=== PATIENT | female | born 1990 | race Caucasian/White ===

== ENCOUNTER 2022-06-13 00:06 | Emergency (ER) | payer BC ==
[2022-06-13 00:59] LABS: ALT (SGPT) 16 U/L (8-55); AST (SGOT) 15 U/L (5-34); Albumin 3.9 g/dL (3.5-5.0); Alkaline Phosphatase 54 U/L (40-110); Anion Gap 14 mmol/L (10-20); BUN (Urea Nitrogen) 6 mg/dL (7.0-18.7); Bilirubin, Total 0.4 mg/dL (0.2-1.2); Calc. Creatinine Clearance 0 mL/min (70-130); Calcium 8.7 mg/dL (7.8-10.44); Carbon Dioxide 19 mmol/L (22-29); Chloride 105 mmol/L (98-107); Estimated GFR 122; Globulin 2.7 g/dL (2.4-3.5); Glucose 103 mg/dL (70-105); Potassium 3.6 mmol/L (3.5-5.1); Protein, Total 6.6 g/dL (6.0-8.3); Sodium 134 mmol/L (136-145)
[2022-06-13 01:19] LABS: #Monocytes 0.5 10x3/uL (0.0-1.1); #Neutrophils 8.3 10x3/uL (1.5-8.4); %Basophils 0.2 % (0.0-2.0); %Lymphocytes 12.8 % (18.0-47.0); %Monocytes 4.5 % (0.0-10.0); Hemoglobin 12.1 g/dL (12.0-15.5); Mean Corpuscular HGB CONC 35.3 g/dL (32.0-36.0); Mean Corpuscular Volume 87.9 fl (81.6-98.3); Mean Platelet Volume 9.5 fl (7.4-10.4); Platelet Count 251 10x3/uL (150-450); RBC Distribution Width 11.9 % (11.5-14.5); White Blood Cell (WBC) Count 10.1 10x3/uL (3.5-10.5)
[2022-06-13 01:22] LABS: SARS-CoV-2 NAA Rapid Test Not Detected (NotDetected)
[2022-06-13] MEDS ORDERED: Acetaminophen 500 MG TAB ONE (01:32)
[2022-06-13 01:41] LABS: Bilirubin Negative (Negative); Blood, Urine Negative (Negative); Clarity Cloudy (Clear); Glucose, Urine (Dipstick) Negative (Negative); Ketone, Urine 40 mg/dL (Negative); Leukocyte Small (Negative); Nitrite Negative (Negative); Protein, Urine (Dipstick) 30 mg/dL (Neg-Trace); Urobilinogen 0.2 mg/dL (Less than 2)
[2022-06-13 01:50] LABS: RBC/HPF None Seen HPF (0-3)
[2022-06-13 01:51] LABS: Bacteria/HPF 2+ HPF (None Seen); Mucous/LPF 4+ LPF (<2+)
[2022-06-13] MEDS ORDERED: Nitrofurantoin Monohyd/M-Cryst 100 MG CAP PO SCH (05:15)
[2022-06-13] MEDS ORDERED: Iopamidol 370 76% 100 ML VIAL ONE (14:07)
== END 2022-06-13 05:25 | disposition home or self-care (01) ==
LOC: CSHERS 00:06
DX: O23.42 Unspecified infection of urinary tract in pregnancy, second trimester (principal); N39.0 Urinary tract infection, site not specified; Z20.822 Contact with and (suspected) exposure to COVID-19; Z3A.20 20 weeks gestation of pregnancy
CPT/HCPCS: 71275; 80053; 81003; 81015; 84484; 85025; 85379; 87086; 93005; 96360; Q9967

== ENCOUNTER → 2022-10-15 | Day surgery (SDC) | payer BC ==
[~2022-10-15] MED LIST: hydrALAZINE 20 MG/ML VIAL SLOW IVP PRN
[2022-10-15 22:13] VITALS: BMI 30.4
== END ==
LOC: CSHLD/OP 21:39
PROVIDERS: ATTEND Student in an Organized Health Care Education/Training Program
DX: O47.1 False labor at or after 37 completed weeks of gestation (principal); Z3A.37 37 weeks gestation of pregnancy

== ENCOUNTER 2022-10-16 15:08 | Day surgery (SDC) | payer BC ==
[2022-10-16 15:50] VITALS: BMI 30.4
[2022-10-16] MEDS ORDERED: hydrALAZINE 20 MG/ML VIAL SLOW IVP PRN (16:06)
== END 2022-10-16 18:20 | disposition home or self-care (01) ==
LOC: CSHLD/OP 15:08
PROVIDERS: ATTEND Student in an Organized Health Care Education/Training Program
DX: O47.1 False labor at or after 37 completed weeks of gestation (principal); Z88.8 Allergy status to other drugs, medicaments and biological substances; Z3A.37 37 weeks gestation of pregnancy
CPT/HCPCS: 99283

== ENCOUNTER 2022-10-17 14:09 | Observation (INO) | payer BC ==
[2022-10-17] MEDS ORDERED: Carboprost 250 MCG/ML AMP IM PRN (14:47)
[2022-10-17] MEDS ORDERED: Methylergonovine 0.2 MG/ML VIAL IM PRN (14:47)
[2022-10-17] MEDS ORDERED: Diphenoxylate HCl/Atropine Tablet PO PRN (14:47)
[2022-10-17] MEDS ORDERED: HYDROcodone/Acetaminophen 5/325 mg Tablet PO PRN (14:47)
[2022-10-17] MEDS ORDERED: Ibuprofen 800 MG TAB PO PRN (14:47)
[2022-10-17] MEDS ORDERED: hydrALAZINE 20 MG/ML VIAL SLOW IVP PRN (14:47)
[2022-10-17] MEDS ORDERED: Lidocaine 1% (PF) 30 ML VIAL SC PRN (14:47)
[2022-10-17] MEDS ORDERED: Ondansetron PF 4 MG/2 ML Vial IVP PRN (14:47)
[2022-10-17] MEDS ORDERED: Acetaminophen 500 MG TAB PO PRN (14:47)
[2022-10-17] MEDS ORDERED: Promethazine HCl 25 MG/ML VIAL IM PRN (14:47)
[2022-10-17] MEDS ORDERED: Butorphanol Tartrate 1 MG/ML VIAL SLOW IVP PRN (14:47)
[2022-10-17] MEDS ORDERED: Misoprostol 200 MCG TAB PR PRN (14:47)
[2022-10-17] MEDS ORDERED: NS w/ Oxytocin 30 units 500 ML IV SCH (15:00)
[2022-10-17] MEDS ORDERED: Penicillin G Potassium 5 MILL.UNITS in Sodium Chloride 0.9% 100 ML IVPB SCH (15:00)
[2022-10-17] MEDS ORDERED: Penicillin G 2.5 MILL.units 2.5 MILL.UNITS in Premix Bag 1 BAG IVPB SCH (15:00)
[2022-10-17 15:17] VITALS: BMI 31.1
[2022-10-17 15:39] LABS: Hemoglobin 12.9 g/dL (12.0-15.5); Mean Corpuscular Hemoglobin 30.7 pg (27.0-33.0); Mean Corpuscular Volume 87.9 fl (81.6-98.3); Mean Platelet Volume 10.4 fl (7.4-10.4); Platelet Count 219 10x3/uL (150-450); RBC Distribution Width 12.5 % (11.5-14.5); White Blood Cell (WBC) Count 10.9 10x3/uL (3.5-10.5)
[2022-10-17 16:05] LABS: Syphilis Antibody Nonreactive (Nonreactive); Syphilis Antibody Index 0.05 S/CO (<1.00 Non-Reactive)
[2022-10-17 16:06] LABS: HBSAg Index 0.21 S/CO (0-0.99); Hep B Surf Ag Non-Reactive S/CO (NonReactive)
[2022-10-17 16:34] LABS: SARS-CoV-2 NAA Rapid Test Not Detected (NotDetected)
== END 2022-10-18 08:40 | disposition home or self-care (01) ==
LOC: CSHLD/OP 14:09 → CSHLD 16:38 → INTOOBSV 16:38
PROVIDERS: ADMIT Student in an Organized Health Care Education/Training Program; ATTEND Student in an Organized Health Care Education/Training Program
DX: O47.1 False labor at or after 37 completed weeks of gestation (principal); Z3A.38 38 weeks gestation of pregnancy; Z88.8 Allergy status to other drugs, medicaments and biological substances
CPT/HCPCS: 36415; 85027; 86780; 86850; 86900; 86901; 87340; 99283; J2540; J3490; U0002

== ENCOUNTER 2022-10-24 05:30 | Inpatient (IN) | payer BC ==
[2022-10-24] MEDS: Lactated Ringer's 1,000 ML IV SCH ×3 (06:50→13:53)
[2022-10-24] MEDS ORDERED: NS w/ Oxytocin 30 units 500 ML ONE (06:55)
[2022-10-24] MEDS ORDERED: Sodium Chloride 0.9% 100 ML ONE (06:55)
[2022-10-24] MEDS ORDERED: Penicillin G Potassium 5 MILL.UNITS VIAL ONE (06:55)
[2022-10-24] MEDS ORDERED: Lidocaine 1% (PF) 30 ML VIAL SC PRN (06:57)
[2022-10-24] MEDS ORDERED: Promethazine HCl 25 MG/ML VIAL IM PRN ×2 (06:57→10:36)
[2022-10-24] MEDS ORDERED: Misoprostol 200 MCG TAB PR PRN (06:57)
[2022-10-24] MEDS ORDERED: Acetaminophen 500 MG TAB PO PRN (06:57)
[2022-10-24] MEDS ORDERED: NS w/ Oxytocin 30 units 500 ML IV SCH ×2 (06:57)
[2022-10-24] MEDS ORDERED: Ibuprofen 800 MG TAB PO PRN (06:57)
[2022-10-24] MEDS ORDERED: Butorphanol Tartrate 1 MG/ML VIAL SLOW IVP PRN (06:57)
[2022-10-24] MEDS ORDERED: hydrALAZINE 20 MG/ML VIAL SLOW IVP PRN (06:57)
[2022-10-24] MEDS ORDERED: Ondansetron PF 4 MG/2 ML Vial IVP PRN ×2 (06:57→10:36)
[2022-10-24] MEDS ORDERED: Diphenoxylate HCl/Atropine Tablet PO PRN (06:57)
[2022-10-24] MEDS ORDERED: Methylergonovine 0.2 MG/ML VIAL IM PRN (06:57)
[2022-10-24] MEDS ORDERED: Carboprost 250 MCG/ML AMP IM PRN (06:57)
[2022-10-24] MEDS ORDERED: HYDROcodone/Acetaminophen 5/325 mg Tablet PO PRN (06:57)
[2022-10-24] MEDS ORDERED: Penicillin G Potassium 5 MILL.UNITS in Sodium Chloride 0.9% 100 ML IVPB SCH (07:15)
[2022-10-24 07:48] LABS: Hemoglobin 12.2 g/dL (12.0-15.5); Mean Corpuscular HGB CONC 35.4 g/dL (32.0-36.0); Mean Corpuscular Volume 87.6 fl (81.6-98.3); Mean Platelet Volume 10.4 fl (7.4-10.4); Platelet Count 206 10x3/uL (150-450); RBC Distribution Width 12.5 % (11.5-14.5); Red Blood Cell (RBC) Count 3.94 10x6/uL (3.90-5.03); White Blood Cell (WBC) Count 8.3 10x3/uL (3.5-10.5)
[2022-10-24] MEDS ORDERED: Bupivacaine PF 0.5% 30 ML VIAL ONE (08:00)
[2022-10-24] MEDS ORDERED: ePHEDrine Sulfate 50 MG/10 ML VIAL ONE (08:00)
[2022-10-24] MEDS ORDERED: Bupivacaine 0.25% HCL 30 ML VIAL ONE (08:00)
[2022-10-24 08:21] LABS: SARS-CoV-2 NAA Rapid Test Not Detected (NotDetected)
[2022-10-24] MEDS ORDERED: Fentanyl 2 mcg/Bup 0.1% Cadd 100 ML ONE (08:23)
[2022-10-24 08:34] LABS: HBSAg Index 0.19 S/CO (0-0.99); Hep B Surf Ag Non-Reactive S/CO (NonReactive)
[2022-10-24 08:36] LABS: Syphilis Antibody Nonreactive (Nonreactive); Syphilis Antibody Index 0.03 S/CO (<1.00 Non-Reactive)
[2022-10-24 08:42] VITALS: BMI 31.1
[2022-10-24] MEDS ORDERED: diphenhydrAMINE 50 MG/ML VIAL IVP PRN (10:36)
[2022-10-24] MEDS ORDERED: Moisturizing Cream (Eucerin) 113 GM JAR TOP PRN (10:36)
[2022-10-24] MEDS ORDERED: Naloxone HCl 0.4 mg/ml Vial IVP PRN ×2 (10:36)
[2022-10-24] MEDS ORDERED: Acetaminophen 325 MG TAB PO PRN (10:36)
[2022-10-24] MEDS ORDERED: Lactated Ringer's 500 ML IV PRN (10:36)
[2022-10-24] MEDS ORDERED: ePHEDrine Sulfate 50 MG/10 ML VIAL SLOW IVP PRN (10:36)
[2022-10-24] MEDS ORDERED: Communication Order-Pharmacy FS SCH (10:45)
[2022-10-24] MEDS ORDERED: Fentanyl 2 mcg/Bupivacaine 0.1% Cassette 100 ML EPIDURAL SCH (10:45)
[2022-10-24] MEDS: Penicillin G 2.5 MILL.units 2.5 MILL.UNITS in Premix Bag 1 BAG IVPB SCH ×3 (10:50→19:05)
[2022-10-24] MEDS ORDERED: PHENYLEPHRINE-NS 100 MCG/ML 10 ML SYRINGE ONE (20:37)
[2022-10-24] MEDS ORDERED: Famotidine/PF 20 mg/2ml Vial SLOW IVP PRN (23:24)
[2022-10-24] MEDS ORDERED: Bicitra 30 ML UDCUP PO PRN (23:24)
[2022-10-24] MEDS ORDERED: Clindamycin/D5W 900 mg/50 ml Premix Bag ONE (23:25)
[2022-10-24] MEDS ORDERED: Azithromycin 500 MG VIAL ONE (23:26)
[2022-10-24] MEDS ORDERED: Azithromycin 500 MG in Sodium Chloride 0.9% 250 ML 250 ML IVPB SCH (23:30)
[2022-10-24] MEDS ORDERED: Clindamycin/D5W 900 MG in Premix Bag 1 BAG IVPB SCH (23:30)
[2022-10-24] MEDS ORDERED: Oxytocin 10 UNITS/ML VIAL ONE (23:34)
[2022-10-24] MEDS ORDERED: PROPOFOL 20 ML ONE (23:51)
[2022-10-24] MEDS ORDERED: Methylergonovine 0.2 MG/ML VIAL ONE (23:51)
[2022-10-24] MEDS ORDERED: Succinylcholine 200 MG/10 ml SYRINGE FS ONE (23:52)
[2022-10-24] MEDS ORDERED: ADMIXTURE FEE IVPB SCH (23:59)
[2022-10-24] MEDS ORDERED: GENTAMICIN IVPB SCH (23:59)
[2022-10-24] MEDS ORDERED: SODIUM CHLORIDE IVPB SCH (23:59)
[2022-10-25] MEDS ORDERED: Fentanyl 100 MCG/2 ML VIAL ONE (00:10)
[2022-10-25] MEDS ORDERED: Ketorolac Tromethamine 30 MG/ML VIAL ONE (00:13)
[2022-10-25 00:22] LABS: pH (Cord, venous) 7.104 (7.250-7.350)
[2022-10-25] MEDS ORDERED: Metoclopramide HCl 10 MG/2 ML VIAL ONE (00:22)
[2022-10-25] MEDS ORDERED: Lidocaine 2% MPF 10 ML AMP (For Epidural Use) ONE (00:26)
[2022-10-25] MEDS ORDERED: Ondansetron HCl/PF 4 MG/2 ML Vial IVP PRN (00:55)
[2022-10-25] MEDS ORDERED: Fentanyl 100 MCG/2 ML VIAL SLOW IVP PRN (00:55)
[2022-10-25] MEDS ORDERED: diphenhydrAMINE 50 MG/ML VIAL IVP PRN (00:55)
[2022-10-25] MEDS ORDERED: Naloxone HCl 0.4 mg/ml Vial IV PRN (00:55)
[2022-10-25] MEDS ORDERED: Ondansetron PF 4 MG/2 ML Vial IVP PRN ×2 (00:55→04:01)
[2022-10-25] MEDS ORDERED: Meperidine HCl/PF 25 MG/ML VIAL SLOW IVP PRN (00:55)
[2022-10-25] MEDS ORDERED: Moisturizing Cream (Eucerin) 113 GM JAR TOP PRN (00:55)
[2022-10-25] MEDS ORDERED: Promethazine HCl 25 MG/ML VIAL IM PRN ×2 (00:55→04:01)
[2022-10-25] MEDS ORDERED: Naloxone HCl 0.4 mg/ml Vial IVP PRN ×2 (00:55)
[2022-10-25] MEDS ORDERED: Promethazine HCl 25 MG SUPP PR PRN (00:55)
[2022-10-25] MEDS ORDERED: Ketorolac Tromethamine 30 MG/ML VIAL IVP SCH (01:00)
[2022-10-25] MEDS ORDERED: Communication Order-Pharmacy FS SCH (01:00)
[2022-10-25] MEDS ORDERED: Methylergonovine 0.2 MG/ML VIAL IM PRN (04:01)
[2022-10-25] MEDS ORDERED: diphenhydrAMINE 25 MG CAP PO PRN (04:01)
[2022-10-25] MEDS ORDERED: NS w/ Oxytocin 30 units 500 ML IV SCH (04:01)
[2022-10-25] MEDS ORDERED: Misoprostol 200 MCG TAB PR PRN (04:01)
[2022-10-25] MEDS ORDERED: Lanolin Ointment 7 GM TUBE TOP PRN (04:01)
[2022-10-25] MEDS ORDERED: Boostrix 0.5 ML (Tdap) VIAL (>/=7 yrs of age) IM ONE (04:01)
[2022-10-25] MEDS ORDERED: hydrALAZINE 20 MG/ML VIAL SLOW IVP PRN (04:01)
[2022-10-25] MEDS: Penicillin G 2.5 MILL.units 2.5 MILL.UNITS in Premix Bag 1 BAG IVPB SCH (07:42)
[2022-10-25] MEDS: Prenatal Vitamin 1 TAB PO SCH (11:47)
[2022-10-25] MEDS: Ketorolac Tromethamine 30 MG/ML VIAL IVP PRN ×2 (12:58→19:01)
[2022-10-25] MEDS ORDERED: HYDROcodone/Acetaminophen 5/325 mg Tablet PO PRN ×2 (13:00)
[2022-10-25] MEDS ORDERED: traMADol HCl 50 MG TAB PO PRN ×2 (15:11)
[2022-10-25] MEDS: Acetaminophen 500 MG TAB PO PRN (15:49)
[2022-10-25] MEDS: Simethicone Chewable 80 MG TAB PO PRN (15:50)
[2022-10-25] MEDS ORDERED: Docusate 100 MG CAP PO SCH (21:00)
[2022-10-25] MEDS: Docusate Calcium (SURFAK) 240 MG CAP PO SCH (21:37)
[2022-10-26] MEDS: Ibuprofen 800 MG TAB PO SCH ×3 (01:12→17:22)
[2022-10-26] MEDS: Simethicone Chewable 80 MG TAB PO PRN ×3 (04:15→20:10)
[2022-10-26 05:15] LABS: Hemoglobin 9.5 g/dL (12.0-15.5); Mean Corpuscular HGB CONC 34.8 g/dL (32.0-36.0); Mean Corpuscular Hemoglobin 30.4 pg (27.0-33.0); Mean Corpuscular Volume 87.2 fl (81.6-98.3); Mean Platelet Volume 9.7 fl (7.4-10.4); Platelet Count 192 10x3/uL (150-450); RBC Distribution Width 13.1 % (11.5-14.5); Red Blood Cell (RBC) Count 3.13 10x6/uL (3.90-5.03); White Blood Cell (WBC) Count 12.1 10x3/uL (3.5-10.5)
[2022-10-26] MEDS ORDERED: Ibuprofen 800 MG TAB PO PRN (06:00)
[2022-10-26] MEDS ORDERED: Ibuprofen 800 MG TAB PO SCH (06:00)
[2022-10-26] MEDS: Prenatal Vitamin 1 TAB PO SCH (08:29)
[2022-10-26] MEDS: Docusate Calcium (SURFAK) 240 MG CAP PO SCH ×2 (08:29→20:02)
[2022-10-26] MEDS: Acetaminophen 500 MG TAB PO PRN ×2 (14:22→20:10)
[2022-10-27] MEDS: Ibuprofen 800 MG TAB PO SCH ×2 (00:43→08:42)
[2022-10-27] MEDS: Docusate Calcium (SURFAK) 240 MG CAP PO SCH (08:42)
[2022-10-27] MEDS: Prenatal Vitamin 1 TAB PO SCH (08:43)
[2022-10-27] MEDS: Simethicone Chewable 80 MG TAB PO PRN (08:48)
[2022-10-27 09:59] VITALS: BP 130/72; TEMP 98
== END 2022-10-27 13:18 | disposition home or self-care (01) | DRG 788 ==
LOC: CSHLD 06:15 → CSHPP 10-25 08:00
PROVIDERS: ADMIT Student in an Organized Health Care Education/Training Program; ATTEND Student in an Organized Health Care Education/Training Program
PROC: 10D00Z1 Extraction of Products of Conception, Low, Open Approach (ICD-10-PCS; principal; 2022-10-25)
PROC: 10907ZC Drainage of Amniotic Fluid, Therapeutic from Products of Conception, Via Natural or Artificial Opening (ICD-10-PCS; 2022-10-25)
DX: O24.420 Gestational diabetes mellitus in childbirth, diet controlled (principal); O62.1 Secondary uterine inertia; Z3A.39 39 weeks gestation of pregnancy; Z37.0 Single live birth; O32.8XX0 Maternal care for other malpresentation of fetus, not applicable or unspecified; O99.824 Streptococcus B carrier state complicating childbirth; Z98.890 Other specified postprocedural states; Z88.8 Allergy status to other drugs, medicaments and biological substances; Z20.822 Contact with and (suspected) exposure to COVID-19; J45.909 Unspecified asthma, uncomplicated; O99.52 Diseases of the respiratory system complicating childbirth
CPT/HCPCS: 36415; 51702; 82805; 85027; 86780; 86850; 86900; 86901; 87340; J1885; J2540; J2590; J2704; J2765; J3010; J3490; J7120; S0020; U0002